=== PATIENT | female | born 1980 | race Hispanic/Latino ===

== ENCOUNTER → 2022-10-01 | Outpatient (CLI) | payer OTHER | END | disposition home or self-care (01) | LOC: RAH 11:26 | PROVIDERS: ATTEND Family Medicine | DX: Z12.31 Encounter for screening mammogram for malignant neoplasm of breast (principal) | CPT/HCPCS: 77067 ==

== ENCOUNTER → 2023-10-04 | Outpatient (CLI) | payer OTHER | END | disposition home or self-care (01) | LOC: RAH 11:32 | PROVIDERS: ATTEND Obstetrics & Gynecology | DX: Z12.31 Encounter for screening mammogram for malignant neoplasm of breast (principal); R92.323 Mammographic fibroglandular density, bilateral breasts; R92.30 Dense breasts, unspecified | CPT/HCPCS: 77067 ==

== ENCOUNTER → 2024-12-20 | Outpatient (CLI) | payer OTHER ==
--- NOTE | 2024-12-24 15:04 | HMCIMG ---
DIGITAL BILATERAL SCREENING MAMMOGRAM Technique: The digital mammographic examination of both breasts in craniocaudal and mediolateral oblique views along with CAD was obtained. History: This is a 44 years year-old female 2, para2 Ab0. Patient has no family history of breast cancer. Patient has no complaint Reference:Prior mammogram from 10/04/2023, 10/01/2022 and 05/15/2021 are available for comparison.. Breast composition: Breast composition B: There are scattered areas of fibroglandular density. Finding: The digital mammographic examination of both breasts in craniocaudal and mediolateral oblique view along with CAD demonstrates both breasts to BE mildly heterogeneously dense due to fibroglandular stromal elements.. The study is unchanged from prior study.. There is no evidence of any dendritic mass, cluster microcalcification or architectural distortion. The retromammary fat appears to be normal. IMPRESSION: Unchanged from prior mammography. NO RADIOGRAPHIC EVIDENCE OF MALIGNANT CHANGES. WE WOULD RECOMMEND ANNUAL FOLLOW UP WITH TOMOSYNTHESIS UNLESS OTHERWISE CLINICALLY INDICATED. FINAL ASSESSMENT: ACR: BI-RAD - 1. Negative Mammogram. NOTE: IF A WORK-UP OF THIS PATIENT LEADS TO A BIOPSY, PLEASE FORWARD A COPY OF THE PATHOLOGY REPORT TO OUR OFFICE REQUIRED BY [facility] EFFECTIVE NOVEMBER 07, 1993. A NEGATIVE MAMMOGRAM SHOULD NOT PRECLUDE BIOPSY OF A CLINICALLY PALPABLE SUSPICIOUS MASS, 10% OF BREAST CANCERS ARE MAMMOGRAPHICALLY OCCULT. THIS MAMMOGRAPHY FACILITY IS FULLY ACCREDITED BY THE [employer]OD AND [employer] (FDA). THANK YOU FOR THIS REFERRAL.
--- NOTE | 2024-12-26 10:32 | HMCIMG ---
BILATERAL BREAST ULTRASOUND: Finding: Real-time examination of the both breasts demonstrates homogeneous echotexture throughout both the breasts without evidence of focal solid or cystic masses. There are bilateral benign appearing axillary lymph node. The right measures 1.4 x 1.2 x 1.7 cm. The left measures 1.7 x 0.8 x 1.9 cm. IMPRESSION: No mass or cyst seen. FINAL ASSESSMENT: ACR: BI-RAD - 1. Negative Mammogram.
== END | disposition home or self-care (01) ==
LOC: CANPRECLI → RAH 13:11
PROVIDERS: ATTEND Obstetrics & Gynecology
DX: Z12.31 Encounter for screening mammogram for malignant neoplasm of breast (principal); R92.323 Mammographic fibroglandular density, bilateral breasts
CPT/HCPCS: 77067